=== PATIENT | female | born 1985 | race Caucasian/White ===

== ENCOUNTER 2019-05-19 00:16 | Outpatient (CLI) | payer OTHER ==
--- NOTE | 2019-05-19 00:17 | Ultrasound Report ---
US OB <= 14 weeks fetus INDICATION / CLINICAL INFORMATION: no care/contractions. COMPARISON: None available. FINDINGS: Single, viable intrauterine . heart rate 158. [place]-rump length measures 7.1 mm, corresponding to a gestational age of 8 weeks 1 day. Ovaries are negative. No free fluid. IMPRESSION: 1. Single, viable 8 week 1 day intrauterine . Signer Name: Al Mckeon MD Signed: 05/19/2019 12:12 AM Workstation Name: [email or web address]
[2019-05-19 01:38] LABS: Basophils % (Auto) 0.7 % (0.0-1.8); Eosinophils # (Auto) 0.1 K/mm3 (0.0-0.4); Eosinophils % (Auto) 1.9 % (0.0-4.3); Hemoglobin 14.3 gm/dl (10.1-14.3); Lymphocytes # (Auto) 2.4 K/mm3 (1.2-5.4); Lymphocytes % (Auto) 33.4 % (13.4-35.0); Mean Corpuscular HGB Conc 34 % (30-34); Mean Corpuscular Volume 92 fl (79-97); Monocytes # (Auto) 0.6 K/mm3 (0.0-0.8); Monocytes % (Auto) 8.4 % (0.0-7.3); Platelet Count 214 K/mm3 (140-440); Red Blood Count 4.58 M/mm3 (3.65-5.03)
[2019-05-19 02:33] LABS: Hepatitis C Virus Antibody Non-Reactive (NonReactive)
[2019-05-19 05:05] VITALS: BP 132/62
== END 2019-05-19 00:20 | disposition still patient (30) ==
LOC: ED 00:16 → TRG 00:16 → ED 00:20
PROVIDERS: ATTEND Obstetrics & Gynecology
DX: Z34.91 Encounter for supervision of normal pregnancy, unspecified, first trimester (principal); Z3A.08 8 weeks gestation of pregnancy
CPT/HCPCS: 36415; 76801; 85025; 86706; 86762; 86803; 87806

== ENCOUNTER 2019-05-19 00:26 | Emergency (ER) | payer OTHER ==
[2019-05-19 00:59] VITALS: BP 124/77
--- NOTE | 2019-05-19 03:22 | XRay Report ---
CHEST 1 VIEW INDICATION: productive cough COMPARISON: None FINDINGS: Support devices: None Heart: Normal Lungs/Pleura: No acute pulmonary or pleural findings. IMPRESSION: 1. No acute disease. Signer Name: Al Mckeon MD Signed: 05/19/2019 3:17 AM Workstation Name: [email or web address]
--- NOTE | 2019-05-19 03:36 | Emergency Department Report ---
ED General Adult HPI - General Chief complaint: Upper Respiratory Infection Stated complaint: COUGH Time Seen by Provider: 05/19/19 02:24 Source: patient Mode of arrival: Ambulatory Limitations: No Limitations - History of Present Illness Initial comments: Is a 33-year-old female who is in first trimester who is presenting with cough and congestion. Patient states cough is productive. She also has a mild sore throat. She denies fever. Patient states there is some discomfort in the lower ribs with coughing. Symptoms have been present for approximately 2-3 days. Associated Symptoms: cough, fever/chills, malaise, shortness of breath. denies: confusion, diaphoresis, headaches, loss of appetite, nausea/vomiting, rash, seizure, syncope, weakness - Related Data Previous Rx's Medication Instructions Recorded Last Taken Type Ibuprofen [Motrin 600 MG tab] 600 mg PO Q6H #30 tablet 05/28/14 Unknown Rx oxyCODONE /ACETAMINOPHEN [Percocet 2 tab PO Q4H PRN #30 tablet 05/28/14 Unknown Rx 5/325 mg] ALBUTEROL Inhaler (OR & NICU) 2 puff IH QID PRN #1 inhalation 05/19/19 Unknown Rx [ProAir HFA Inhaler] Azithromycin [Zithromax Z-SANAM] 250 mg PO DAILY #6 tablet 05/19/19 Unknown Rx Allergies Allergy/AdvReac Type Severity Reaction Status Date / Time No Known Allergies Allergy Unverified 05/27/14 10:04 ED Review of Systems ROS: Stated complaint: COUGH Other details as noted in HPI Comment: All other systems reviewed and negative ED Past Medical Hx - Past Medical History Previous Medical History?: No Hx Hypertension: No Hx Congestive Heart Failure: No Hx Diabetes: No Hx Deep Vein Thrombosis: No Hx Renal Disease: No Hx Sickle Cell Disease: No Hx Seizures: No Hx Asthma: No Hx COPD: No Hx HIV: No - Surgical History Past Surgical History?: No - Social History Smoking Status: Never Smoker Substance Use Type: None - Medications Home Medications: Home Medications Medication Instructions Recorded Confirmed Last Taken Type Ibuprofen [Motrin 600 MG tab] 600 mg PO Q6H #30 tablet 05/28/14 Unknown Rx oxyCODONE /ACETAMINOPHEN [Percocet 2 tab PO Q4H PRN #30 tablet 05/28/14 Unknown Rx 5/325 mg] ALBUTEROL Inhaler (OR & NICU) 2 puff IH QID PRN #1 inhalation 05/19/19 Unknown Rx [ProAir HFA Inhaler] Azithromycin [Zithromax Z-SANAM] 250 mg PO DAILY #6 tablet 05/19/19 Unknown Rx ED Physical Exam - General Limitations: No Limitations General appearance: alert, in no apparent distress - Head Head exam: Present: atraumatic, normocephalic - Eye Eye exam: Present: normal appearance - ENT ENT exam: Present: mucous membranes moist - Neck Neck exam: Present: normal inspection - Respiratory Respiratory exam: Present: normal lung sounds bilaterally. Absent: respiratory distress, wheezes, rales, rhonchi - Cardiovascular Cardiovascular Exam: Present: regular rate, normal rhythm. Absent: systolic murmur, diastolic murmur, rubs, gallop - GI/Abdominal GI/Abdominal exam: Present: soft, normal bowel sounds - Extremities Exam Extremities exam: Present: normal inspection - Back Exam Back exam: Present: normal inspection - Neurological Exam Neurological exam: Present: alert, oriented X3 - Psychiatric Psychiatric exam: Present: normal affect, normal mood - Skin Skin exam: Present: warm, dry, intact, normal color. Absent: rash ED Course Vital Signs 05/19/19 00:56 Temperature 98.3 F Pulse Rate 84 Respiratory 20 Rate Blood Pressure 124/77 O2 Sat by Pulse 99 Oximetry ED Medical Decision Making - Radiology Data Ordering Physician: FRITZ RINCON MD Date of Service: 05/19/19 Procedure(s): XR chest 1V ap Accession Number(s): [id number] cc: FRITZ RINCON MD Fluoro Time In Minutes: CHEST 1 VIEW INDICATION: productive cough COMPARISON: None FINDINGS: Support devices: None Heart: Normal Lungs/Pleura: No acute pulmonary or pleural findings. IMPRESSION: 1. No acute disease. Signer Name: Al Mckeon MD Signed: 05/19/2019 3:17 AM Workstation Name: [employer] - Medical Decision Making Patient to be treated for acute bronchitis. Critical care attestation.: If time is entered above; I have spent that time in minutes in the direct care of this critically ill patient, excluding procedure time. ED Disposition Clinical Impression: Acute bronchitis Disposition: DC-01 TO HOME OR SELFCARE Is pt being admited?: No Does the pt Need Aspirin: No Condition: Stable Instructions: Acute Bronchitis (ED) Referrals: PRIMARY CARE, [Primary Care Provider] - 3-5 Days Time of Disposition: 03:35 Print Language: ANDORRAN
== END 2019-05-19 04:01 | disposition home or self-care (01) ==
LOC: ED 00:26
DX: J20.9 Acute bronchitis, unspecified (principal); Z79.899 Other long term (current) drug therapy
CPT/HCPCS: 71045

== ENCOUNTER 2019-12-19 17:22 | Inpatient (IN) | payer OTHER ==
[2019-12-19] MEDS ORDERED: LACTATED RINGERS 1,000 ML ONE ×2 (17:51→22:10)
--- NOTE | 2019-12-19 18:29 | History and Physical Report ---
History of Present Illness Date of examination: 12/19/19 Date of admission: 12/19/19 18:09 Chief complaint: Contractions History of present illness: Patient is a 34-year-old 4 para 3 who presents with no care since second trimester in active labor. According to the patient her EDC is January 03, 2020 which makes her 37 weeks and 5 days. According to the patient she has had no problems with this . Past History Past Medical History: no pertinent history Past Surgical History: other (cosmetic surgery) Social history: - Obstetrical History Expected Date of Delivery: 01/03/20 Actual Gestation: 37 Week(s) 6 Day(s) : 4 Para: 3 Number of Living Children: 3 Medications and Allergies Allergies Allergy/AdvReac Type Severity Reaction Status Date / Time No Known Allergies Allergy Unverified 05/27/14 10:04 Home Medications Medication Instructions Recorded Confirmed Last Taken Type Ibuprofen [Motrin 600 MG tab] 600 mg PO Q6H #30 tablet 05/28/14 Unknown Rx oxyCODONE /ACETAMINOPHEN [Percocet 2 tab PO Q4H PRN #30 tablet 05/28/14 Unknown Rx 5/325 mg] Albuterol Mdi (or & Nicu Only) 2 puff IH QID PRN #1 inhalation 05/19/19 Unknown Rx [ProAir HFA Inhaler] Azithromycin [Zithromax Z-SANAM] 250 mg PO DAILY #6 tablet 05/19/19 Unknown Rx Review of Systems All systems: negative Genitourinary: leakage of fluid, pelvic pain, contractions - Vital Signs Vital signs: Vital Signs Pulse Pulse Ox 103 H 97 12/19/19 17:45 12/19/19 17:45 Temp Pulse Resp BP Pulse Ox 96 H 96 12/19/19 17:55 12/19/19 17:55 - Physical Exam Breasts: Positive: deferred Cardiovascular: Regular rate, Normal S1, Normal S2 Lungs: Positive: Clear to auscultation, Normal air movement Abdomen: Positive: normal appearance, soft, normal bowel sounds. Negative: distention, tenderness Genitourinary (Female): Positive: normal external genitalia, normal perenium Vulva: both: normal Vagina: Positive: normal moisture. Negative: discharge Cervix: Negative: lesion, discharge Uterus: Positive: normal size, normal contour Adnexa: both: normal Anus/Rectum: Positive: normal perianal skin, heme negative. Negative: rectal mass, hemorrhoids Extremities: Deep Tendon Reflex Grade: Normal +2 - Obstetrical Cervical Dilatation: 6 Cervical Effacement Percentage: 80 station: -1 Uterine Contraction Pattern: Regular Results All other labs normal. Assessment and Plan IUP at 37 and 6 with no care. We will admit for delivery. We will order labs. Attend to treat for GBS status which is unlikely due to patient progressing quickly. Anticipate
--- NOTE | 2019-12-19 18:31 | Procedure Note ---
OB Delivery Note - Delivery Date of Delivery: 12/19/19 Surgeon: VINNIE VARELA Estimated blood loss: 200cc - Vaginal Delivery presentation: vertex Delivery position: OA Intrapartum events: no care, precipitous labor- <3hr Delivery induction: none Delivery monitor: external FHT, external uterine Route of delivery: Delivery placenta: spontaneous Delivery cord: 3 umbilical vessels Episiotomy: none Delivery laceration: none Anesthesia: none Delivery comments: Viable male delivered precipitously over intact perineum without nuchal cord with the presence of terminal meconium. Cord clamped and cut. Placenta delivered spontaneously intact with three-vessel cord. No lacerations. Patient tolerated the procedure well. Excellent hemostasis. - A at 1 minute: 8 Infant Gender: Male (7 pounds 15 ounces)
[2019-12-19] MEDS ORDERED: OXYTOCIN 20 UNIT/1000ML DRIP 40,000 MILLIUNITS/2,000 ML BAG IV ONE (18:58)
[2019-12-19 19:03] LABS: Basophils % (Auto) 0.2 % (0.0-1.8); Eosinophils % (Auto) 0.1 % (0.0-4.3); Hematocrit 44.8 % (30.3-42.9); Lymphocytes # (Auto) 2.2 K/mm3 (1.2-5.4); Lymphocytes % (Auto) 19.3 % (13.4-35.0); Mean Corpuscular HGB Conc 34 % (30-34); Mean Corpuscular Volume 94 fl (79-97); Monocytes # (Auto) 0.6 K/mm3 (0.0-0.8); Monocytes % (Auto) 5.5 % (0.0-7.3); Platelet Count 218 K/mm3 (140-440); Red Blood Count 4.77 M/mm3 (3.65-5.03); Red Cell Distribution Width 14.7 % (13.2-15.2)
[2019-12-19] MEDS ORDERED: LANOLIN/ZINC/DIMETHICONE (LANSINOH) 7 GM TP PRN (22:38)
[2019-12-19] MEDS ORDERED: diphenhydrAMINE 25 MG CAP PO PRN (22:38)
[2019-12-19] MEDS ORDERED: HYDROcodone/ACETAMINOPHEN 5-325 MG TAB PO PRN (22:38)
[2019-12-19] MEDS ORDERED: PROMETHAZINE 25 MG RECT SUPP PR PRN (22:38)
[2019-12-19] MEDS ORDERED: PROMETHAZINE 25 MG TAB PO PRN (22:38)
[2019-12-19] MEDS ORDERED: MAGNESIUM HYDROXIDE (MOM) ORAL LIQD UDC PO PRN (22:38)
[2019-12-19] MEDS ORDERED: WITCH HAZEL/ GLYCERIN PAD TP PRN (22:38)
[2019-12-19] MEDS ORDERED: ACETAMINOPHEN 325 MG TAB PO PRN (22:38)
[2019-12-19] MEDS ORDERED: ONDANSETRON 4 MG/2 ML INJ IV PRN (22:38)
[2019-12-20] MEDS: IBUPROFEN 600 MG TAB PO SCH ×3 (00:07→13:46)
[2019-12-20] MEDS ORDERED: OXYTOCIN 20 UNIT/1000ML DRIP 20 UNITS/1,000 ML BAG IV SCH (06:00)
[2019-12-20] MEDS ORDERED: LACTATED RINGERS 1,000 ML IV SCH (06:00)
[2019-12-20 07:30] LABS: Hematocrit 39.1 % (30.3-42.9); Hemoglobin 13.3 gm/dl (10.1-14.3)
[2019-12-21] MEDS: IBUPROFEN 600 MG TAB PO SCH ×3 (10:14→17:05)
[2019-12-21 16:24] VITALS: BP 120/78
--- NOTE | 2019-12-21 18:59 | Discharge Summary ---
Providers - Providers Date of Admission: 12/19/19 18:09 Date of discharge: 12/21/19 Attending physician: VINNIE VARELA 12/20/19 07:27 Consult to Case Management [CONS] Routine Services Needed at Discharge: Other Notified:: no answer Phone number called:: [phone] Was contact made?: No Time called:: 07:28 Comment:: will call back @8:30 a.m. when administrator social welfare arrives Additional Physician Instructions: no care Primary care physician: TRAPPER ANIMAL Hospitalization Reason for admission: active labor Delivery: Episiotomy: none Laceration: none Other procedures: none complications: none Discharge diagnosis: IUP at term delivered baby: male Hospital course: unremarkable Condition at discharge: Good Disposition: DC-01 TO HOME OR SELFCARE Plan - Provider Discharge Summary Activity: routine, no sex for 6 weeks, no heavy lifting 4 weeks Diet: routine Instructions: routine Additional instructions: [] Smoking cessation referral if applicable(refer to patient education folder for contact #) [] Refer to [facility] Booklet Call your doctor immediately for: * Fever > 100.5 * Heavy vaginal bleeding ( >1 pad per hour) * Severe persistent headache * Shortness of breath * Reddened, hot, painful area to leg or breast * Drainage or odor from incision. * Keep incision clean and dry at all times and follow doctor's instructions regarding bathing/showering - Follow up plan Follow up: PRIMARY CARE, [Primary Care Provider] - 6 Weeks Forms: [facility] Discharge Summary
== END 2019-12-21 19:30 | disposition home or self-care (01) | DRG 807 ==
LOC: TRG 17:22 → APU 17:23 → LD 18:00 → TRG 18:07 → LD 18:09 → OB 22:53
PROVIDERS: ADMIT Obstetrics & Gynecology; ATTEND Obstetrics & Gynecology
PROC: 10E0XZZ Delivery of Products of Conception, External Approach (ICD-10-PCS; principal; 2019-12-19)
DX: O62.3 Precipitate labor (principal); Z37.0 Single live birth; Z3A.37 37 weeks gestation of pregnancy; Z79.899 Other long term (current) drug therapy
CPT/HCPCS: 36415; 85014; 85018; 85025; 86592; 86706; 86762; 86850; 86900; 86901; 87806; G0378; J2590; J7120